=== PATIENT | female | born 1960 | race Caucasian/White ===

== ENCOUNTER 2023-12-02 19:08 | Emergency (ER) | payer OTHER, SELFPAY ==
[2023-12-02 19:14] VITALS: BP 145/87; PULSE 79; RESP 18; TEMP 36.7; O2SAT 98; BMI 25.0
--- NOTE | 2023-12-02 20:06 | ED.GENADULT ---
HPI - General Adult General Chief complaint: Eye Problems Stated complaint: Sinus infection, moved into eye Time Seen by Provider: 12/02/23 20:06 History of Present Illness HPI narrative: Pt c/o pain and dripping pus out of left eye this morning. Pt states she was seen at [facility] today, diagnosed with sinus infection , and given eye drops and doxycycline. After using drops, eye symptoms worsened, so pt advised to come to ER. 63-year-old woman presenting to the emergency department with concern of eye infection. Has been sick about 5 days. Initial nasal congestion progressed to include facial pain particularly left-sided. She also describes copious green nasal drainage. No fever. This morning woke with her left eye mattered and red and presented to urgent care earlier today. Was initiated on Polytrim drops and having mentioned a problem with Augmentin in the form of stomach upset in the past was initiated on 5 days of doxycycline for bacterial sinus infection?. Placed the Polytrim drops and took a nap and woke with severely inflamed left eye. Painful with lots of drainage. Experiencing a good deal of photophobia. Was advised by urgent care provider to discontinue the drops suspecting a medication reaction and erythromycin ointment was sent in. Related Data Home Medications Medication Instructions Recorded Confirmed alprazolam 0.25 mg tablet 0.25 mg PO DAILY 12/02/23 12/02/23 desvenlafaxine succinate 100 mg 100 mg PO DAILY 12/02/23 12/02/23 tablet,extended release 24 hr escitalopram oxalate 20 mg tablet 20 mg PO BID 12/02/23 12/02/23 estradiol 0.025 mg/24 hr patch transdermal 12/02/23 12/02/23 semiweekly transdermal patch (Hanh) hydrochlorothiazide 12.5 mg tablet 12.5 mg PO DAILY 12/02/23 12/02/23 lansoprazole 30 mg capsule,delayed 30 mg PO DAILY 12/02/23 12/02/23 release levothyroxine 75 mcg tablet 75 mcg PO DAILY 12/02/23 12/02/23 rosuvastatin 10 mg tablet 10 mg PO QPM 12/02/23 12/02/23 tramadol 50 mg tablet 50 mg PO Q6H PRN 12/02/23 12/02/23 Previous Rx's Medication Instructions Recorded doxycycline hyclate 100 mg tablet 100 mg PO BID 5 days #10 tabs 12/02/23 erythromycin 5 mg/gram (0.5 %) eye 0.5 inch ophthalmic (eye) QID #3.5 12/02/23 ointment grams polymyxin B sulfate 10,000 1 drp ophthalmic (eye) Q3H 7 days 12/02/23 unit-trimethoprim 1 mg/mL eye drops #10 mL cyclopentolate 0.5 % eye drops 1 drp ophthalmic (eye-left) QID 12/03/23 PRN #15 mL Allergies Allergy/AdvReac Type Severity Reaction Status Date / Time egg Allergy Severe Anaphylaxis Verified 12/02/23 19:18 red dye Allergy Verified 12/02/23 19:18 Review of Systems Status of ROS: Reports: 6 or more systems reviewed and unremarkable except as noted in History and below [facility] Social History Smoking Status: Never smoker Non-prescribed substance use: denies use Exam Narrative: Exam Narrative: Pleasant. Seems little uncomfortable. Left eye is clearly with diffuse conjunctival injection not sparing the limbus. Redness is a little darker than typical conjunctivitis. Pupils are 3 mm equal and briskly reactive. Extraocular movements are full. Right eye does not appear to be involved/erythematous. There is mild swelling and faint erythema to the lids as well. Boggy conjunctiva to the eye. Does otherwise sound little congested in the nasopharynx. She is tender to palpation over the left maxillary sinus. Oropharynx is moist not erythematous. No cervical lymphadenopathy. Cranial nerves 2-12 intact. Breathing easily. Did numb the eye with some tetracaine and explore further with fluorescein dye. Retracted upper and lower lids as well. I do not see discrete area of uptake other than maybe a little bit medial to the cornea in the conjunctiva but I would say this isn't terribly distinct from the rest of the conjunctiva. Const: Vital Signs, click to edit/add: Vital Signs - 24 hr 12/02/23 19:14 Temperature 98.0 F Pulse Rate [Pulse Oximeter] 79 Respiratory Rate 18 Blood Pressure [Ri ght Upper Arm] 145/87 H Pulse Oximetry 98 Oxygen Delivery Me thod Room Air Documenting provider has reviewed patient's vital signs: yes Course Vital Signs Vital signs: Initial Vital Signs Temperature 98.0 F 12/02/23 19:14 Temperature Source Temporal Artery Scan 12/02/23 19:14 Pulse Rate 79 12/02/23 19:14 Respiratory Rate 18 12/02/23 19:14 Blood Pressure 145/87 H 12/02/23 19:14 Blood Pressure Mean 106 H 12/02/23 19:14 Blood Pressure Position Sitting 12/02/23 19:14 Pulse Oximetry 98 12/02/23 19:14 Oxygen Delivery Method Room Air 12/02/23 19:14 Vital Signs Temperature 98.0 F 12/02/23 19:14 Pulse Rate 79 12/02/23 19:14 Respiratory Rate 18 12/02/23 19:14 Blood Pressure 145/87 H 12/02/23 19:14 Pulse Oximetry 98 12/02/23 19:14 Oxygen Delivery Method Room Air 12/02/23 19:14 Temperature 98.0 F 12/02/23 19:14 Pulse Rate 79 12/02/23 19:14 Respiratory Rate 18 12/02/23 19:14 Blood Pressure 145/87 H 12/02/23 19:14 Pulse Oximetry 98 12/02/23 19:14 Oxygen Delivery Method Room Air 12/02/23 19:14 Medications Administered Medications: Discontinued Medications Generic Name Dose Route Start Last Admin Trade Name Freq PRN Reason Stop Dose Admin Cyclopentolate HCl 1 ml 12/02/23 20:22 12/02/23 20:26 Cyclopentolate 1% Ophth EYE-LEFT 12/02/23 20:23 1 ml ONCE ONE Administration Medical Decision Making MDM Narrative Medical decision making narrative: The dark redness and timing of this abrupt worsening of the conjunctiva/eye pain and swelling I think is more likely for medication reaction. She did have what sounds like underlying viral conjunctivitis. No recent history of cold sores or similar to suggest herpetic infection. I do not see any dendritic lesions. Does seem to exhibit some iritis. Recommendations at this point would be to not use anymore antibiotic drops or ointment in the eye. Would offer some cyclopentolate is still particularly irritated/photophobic tomorrow. Would discontinue doxycycline and initiate a course of amoxicillin for apparent sinusitis. Amoxicillin alone should not cause the aforementioned stomach upset was was more likely related to the Augmentin specifically. Would also prescribed a longer course if treating sinuses and add prednisone. See patient discharge plan Medical Records Medical records reviewed: Yes I reviewed the patient's medical records Discharge Plan Discharge Clinical Impression: Conjunctivitis, viral, Medication adverse effect, Sinus infection Patient Disposition: Home, Self-Care Condition: Stable Additional Instructions: Stay well-hydrated. Consider sleeping under the mist of a cool mist humidifier. Might benefit from nasal saline rinses as discussed. Pseudoephedrine if tolerated for drying and decongestion Refresh PM ointment you can place into your eye for soothing. Can place a small ribbon at least 4 times a day/as needed and then also before bed. If still quite light sensitive tomorrow, I have called in a prescription for cyclopentolate. If markedly worse over the course of tomorrow I would consider re-evaluation at your eye clinic. Prednisone and amoxicillin from [facility]. Apologies for the form of amoxicillin and the quantity --pre selected options are limited. Instead of 2 times daily, will need to take this amoxicillin 3 times daily and would take it for at least 12 days. Prescriptions: New cyclopentolate 0.5 % drops 1 drp ophthalmic (eye-left) QID PRNQty: 15 0RF Rx Instructions: compress lacrimal sac for 1-2 minutes after instillation No Action tramadol 50 mg tablet 50 mg PO Q6H PRN hydrochlorothiazide 12.5 mg tablet 12.5 mg PO DAILY levothyroxine 75 mcg tablet 75 mcg PO DAILY estradiol [Hanh] 0.025 mg/24 hr patch semiweekly transdermal alprazolam 0.25 mg tablet 0.25 mg PO DAILY lansoprazole 30 mg capsule,delayed release(DR/EC) 30 mg PO DAILY escitalopram oxalate 20 mg tablet 20 mg PO BID desvenlafaxine succinate 100 mg tablet extended release 24 hr 100 mg PO DAILY rosuvastatin 10 mg tablet 10 mg PO QPM doxycycline hyclate 100 mg tablet 100 mg PO BID 5 Days Qty: 10 0RF polymyxin B sulf-trimethoprim 10,000 unit- 1 mg/mL drops 1 drp ophthalmic (eye) Q3H 7 Days Qty: 10 0RF Rx Instructions: while awake; do not exceed 6 doses in 24 hours erythromycin 5 mg/gram (0.5 %) ointment 0.5 inch ophthalmic (eye) QID Qty: 3.5 0RF Follow Up/Referrals: Provider,Not a Local [Primary Care Provider] - Stand Alone Forms: [employer] Info Instructions
== END 2023-12-02 21:16 | disposition home or self-care (01) ==
PROVIDERS: Emergency Provider Family Medicine
DX: J32.9 Chronic sinusitis, unspecified (principal); H10.89 Other conjunctivitis; T50.905A Adverse effect of unspecified drugs, medicaments and biological substances, initial encounter
CPT/HCPCS: 99283; 99284